=== PATIENT | male | born 1945 | race Caucasian/White ===

== ENCOUNTER 2019-12-10 09:34 | Observation (INO) ==
[2019-12-10] MEDS ORDERED: Isovue-370 500 ML BOTTLE IVP ONE (09:56)
[2019-12-10 10:16] LABS: Hematocrit 46.5 % (37.5-50.1); Mean Corpuscular HGB Conc 34.4 g/dL (31.6-35.5); Mean Corpuscular Hemoglobin 40.9 pg (28.0-33.3); Mean Corpuscular Volume 118.9 fL (83.0-100.0); Mean Platelet Volume 11.2 fL (9.4-12.4); Platelet Count 158 K/mcL (140-400); Red Blood Count 3.91 M/mcL (4.19-5.50); Red Cell Distribution Width 13.6 % (11.5-14.5); White Blood Count 11.4 K/mcL (4.3-11.1)
[2019-12-10 10:36] LABS: BUN/Creatinine Ratio 21 (6-26); Blood Urea Nitrogen 19 mg/dL (8-23); Calcium 9.7 mg/dL (8.6-10.3); Carbon Dioxide 29 mEq/L (23-29); Chloride 96 mEq/L (98-107); Glucose 118 mg/dL (70-105); Osmolality,Calculated 283 (280-300); Potassium 3.8 mEq/L (3.5-5.1); Sodium 135 mEq/L (136-145); eGFR For African Americans > 60 (> 60); eGFR For Non-African Americans > 60 (> 60)
[2019-12-10 12:33] LABS: Alanine Aminotransferase 153 Units/L (7-52); Albumin 3.8 g/dL (3.5-5.7); Albumin/Globulin Ratio 1.1 (1.1-2.2); Alkaline Phosphatase 226 Units/L (34-104); Aspartate Amino Transferase 98 Units/L (13-39); Bilirubin,Direct 1.3 mg/dL (0.0-0.2); Bilirubin,Indirect 1.5 mg/dL (0.0-1.0); Bilirubin,Total 2.8 mg/dL (0.3-1.0); Chol/HDL Ratio 7.4 (0-4.9); Cholesterol 89 mg/dL (< 200); Globulin 3.5 g/dL (2.4-3.5); HDL Cholesterol 12 mg/dL (40-59); LDL Cholesterol,Calculated 48 mg/dL (0-99); Total Protein 7.3 g/dL (6.4-8.9); Triglycerides 143 mg/dL (< 150)
[2019-12-10] MEDS ORDERED: Ampicillin/Sulbactam 3,000 MG in 0.9 % Sodium Chloride Mini Bag 100 ML IVPB ONE (13:13)
[2019-12-10] MEDS ORDERED: Ondansetron 4 MG/2 ML VIAL IVP PRN ×2 (16:17→22:43)
[2019-12-10] MEDS ORDERED: Naloxone 0.4 MG/ML INJ IVP PRN ×2 (16:17→22:43)
[2019-12-10] MEDS ORDERED: Ringers Solution, Lactated 1,000 ML IVC SCH (16:30)
[2019-12-10] MEDS ORDERED: *HR* HYDROmorphone (PF) 1 MG/ML SYRINGE IVP PRN (18:14)
[2019-12-10] MEDS ORDERED: *HR* Promethazine 25 MG/ML VIAL IVP PRN (18:14)
[2019-12-10] MEDS ORDERED: *HR* HYDROmorphone 2 MG TABLET PO PRN (18:14)
[2019-12-10] MEDS ORDERED: *HR* Labetalol 20 MG/4 ML SYRINGE IVP PRN (18:14)
[2019-12-10] MEDS ORDERED: *HR* OxyCODONE Immed Rel 5 MG TABLET PO PRN (18:14)
[2019-12-10] MEDS ORDERED: Ampicillin/Sulbactam 3,000 MG in 0.9 % Sodium Chloride Mini Bag 100 ML IVPB SCH (19:00)
[2019-12-10] MEDS ORDERED: *HR* Propofol 200 MG/20 ML VIAL IVP ONE (20:03)
[2019-12-10] MEDS ORDERED: *HR* FentaNYL (PF) 100 MCG/2 ML VIAL ONE (20:03)
[2019-12-10] MEDS ORDERED: Ondansetron 4 MG/2 ML VIAL ONE (20:09)
[2019-12-10] MEDS ORDERED: *HR* Rocuronium Bromide 50 MG/5 ML VIAL ONE (20:09)
[2019-12-10] MEDS ORDERED: Dexamethasone 4 MG/ML VIAL ONE (20:09)
[2019-12-10] MEDS ORDERED: Lidocaine -MPF 2% 2 ML VIAL ONE (20:09)
[2019-12-10] MEDS ORDERED: Acetaminophen IV 1,000 MG/100 ML INFUS..BTL ONE (20:09)
[2019-12-10] MEDS ORDERED: *HR* Succinylcholine 200 MG/10 ML VIAL IVP ONE (20:09)
[2019-12-10] MEDS ORDERED: *HR* HYDROMORPHONE 2 MG/ML VIAL ONE (21:36)
[2019-12-10] MEDS: Gabapentin 300 MG CAPSULE PO SCH (23:07)
[2019-12-10] MEDS: Ringers Solution, Lactated 1,000 ML IVC SCH (23:07)
[2019-12-11] MEDS: Acetaminophen IV 1,000 MG/100 ML INFUS..BTL IVPB SCH ×2 (00:22→05:23)
[2019-12-11] MEDS: Ampicillin/Sulbactam 3,000 MG in 0.9 % Sodium Chloride Mini Bag 100 ML IVPB SCH ×2 (00:23→05:26)
[2019-12-11] MEDS: Ringers Solution, Lactated 1,000 ML IVC SCH (05:53)
[2019-12-11] MEDS ORDERED: allopurinoL 300 MG TABLET PO SCH (09:00)
[2019-12-11] MEDS ORDERED: Hydroxyurea 500 MG CAPSULE PO SCH (09:00)
[2019-12-11] MEDS: Gabapentin 300 MG CAPSULE PO SCH (09:54)
[2019-12-11 10:38] VITALS: BP 133/72
== END 2019-12-11 12:24 | disposition home or self-care (01) ==
LOC: 3ANU 09:34 → EMEROOARM 09:34 → SUATTDRO 14:34 → 3ANU 15:12
PROVIDERS: ADMIT Internal Medicine; ATTEND Internal Medicine